=== PATIENT | female | born 1955 | race Caucasian/White ===

== ENCOUNTER 2024-09-04 02:03 | Outpatient (CLI) | payer MEDICARE, SELFPAY ==
[2024-09-04 15:11] LABS: HCT 37.9 % (36.0-46.0); HGB 12.5 g/dL (11.2-15.7); MCH 30.1 pg (27.0-33.0); MCV 91 fL (80-95); MPV 8.3 fL (8.0-11.0); Platelet Count 252 10^3/uL (130-400); RBC 4.15 10^6/uL (3.93-5.22); RDW-SD 43.1 fL
[2024-09-04 16:33] LABS: VALPROIC ACID 69.7 ug/mL
[2024-09-04 16:46] LABS: ALT 10 U/L (14-59); AST 10 U/L (15-37); Albumin 3.8 g/dL (3.4-5.0); Alkaline Phosphatase 60 U/L (46-116); Anion Gap 7.8 mmol/L (3-11); BUN 12 mg/dL (7-18); Bilirubin, Direct 0.1 mg/dL (0.0-0.2); Bilirubin, Total 0.44 mg/dL (0.2-1.0); CO2 29.2 mmol/L (21.0-32.0); CREATININE 0.6 mg/dL (0.55-1.02); Chloride 97 mmol/L (98-107); Glucose 100 mg/dL (74-106); Sodium 134 mmol/L (136-145); Total Protein 7.1 g/dL (6.4-8.2); Vitamin B12 1473 pg/mL (193-986); Vitamin D 25 Total 60.2 ng/mL (30-100)
[2024-09-08 13:34] LABS: Levetiracetam <1.0 mcg/mL
== END 2024-09-04 02:04 | disposition home or self-care (01) ==
PROVIDERS: PCP Nurse Practitioner Family; Referring Provider Nurse Practitioner Family; Visit Provider Nurse Practitioner Family
DX: Z79.899 Other long term (current) drug therapy (principal); R56.9 Unspecified convulsions
CPT/HCPCS: 36415; 80048; 80076; 82306; 85027; 80164; 80177; 82607

== ENCOUNTER 2024-10-15 14:16 | Outpatient (REF) | payer MEDICARE, SELFPAY ==
--- NOTE | 2024-10-15 11:00 | PAPFT_PTH ---
PATIENT: Yazmin Cline LOC: [facility] U#:[id number] AGE/SX: 68/F ROOM: RE10/15/[address]: Ese Aldana MD : [id number] BED: DIS: 10/15/2024 SPEC #: [id number] RECD: 10/15/24 17:39 STATUS: NISH REQ #: [id number] LEOPOLDO: 10/15/24 11:[address]: Ese Aldana DEPT: [facility] Cytology RECD BY: Sydney Torres ENTERED: 10/15/24 17:39 SP TYPE: PAPFT OTHR DR: Jada Thurman APRN Tissues: 1 - CX/ENDOCX FOR PAP SMEARS Procedures: PAP THIN PREP/[facility] Screening HPV DNA PROBE Comments: [id number] (HPV 16 & 18/45)
== END 2024-10-15 14:17 | disposition home or self-care (01) ==
LOC: LBN 14:16
PROVIDERS: PCP Nurse Practitioner Family; Visit Provider Obstetrics & Gynecology
DX: Z12.4 Encounter for screening for malignant neoplasm of cervix (principal); C50.911 Malignant neoplasm of unspecified site of right female breast; Z85.3 Personal history of malignant neoplasm of breast
CPT/HCPCS: 88142; 87624

== ENCOUNTER 2024-11-05 14:38 | Outpatient (CLI) | payer MEDICARE, SELFPAY ==
--- NOTE | 2024-11-05 08:00 | DI.RAD_ITS ---
Exam(s) XR FEMUR LT EXAM: XR FEMUR LT CLINICAL HISTORY: F/U LEFT FEMUR FRACTURE. TECHNIQUE: 2D digital imaging was performed. Three views. COMPARISON: 06 April 2024 outside films FINDINGS: BONES: Fixation plate is noted along the femoral shaft for fracture fixation. There has been signifi cant interval healing of the distal femoral fracture. There is bony bridging. No acute fracture is present. No bony destructive lesion is seen. JOINTS: No dislocation present. The hip joint space is maintained. The right knee prosthesis appear s unchanged. SOFT TISSUE: Normal. IMPRESSION: Significant interval healing of the previously noted distal femoral fracture with hardware in place. DATA REPOSITORY: RADIATION DOSE DELIVERED:
== END 2024-11-05 14:39 | disposition home or self-care (01) ==
LOC: DIORS 14:39
PROVIDERS: PCP Nurse Practitioner Family; Referring Provider Nurse Practitioner Family; Visit Provider Physician Assistant
DX: M76.32 Iliotibial band syndrome, left leg
CPT/HCPCS: 73552; 99203

== ENCOUNTER 2024-11-23 15:36 | Outpatient (CLI) | payer MEDICARE, SELFPAY ==
--- NOTE | 2024-11-23 15:27 | DI.RAD_ITS ---
Exam(s) XR CHEST 2V PA LATERAL EXAM: XR CHEST 2V PA LATERAL CLINICAL HISTORY: Acute bronchitis, J20.9, R/O pneumonia TECHNIQUE: 2D digital imaging was performed. Two views. COMPARISON: CR XR CHEST PORTABLE 1 VIEW from 03/11/2024 FINDINGS: HEART: Normal size. Aorta: Not dilated. PULMONARY VASCULATURE: Normal. MEDIASTINUM: Unremarkable. LUNGS: Clear. PLEURAL SPACE: No pleural effusion or pneumothorax. BONE:Unremarkable for age. SOFT TISSUES: Unremarkable. IMPRESSION: No acute abnormality. DATA REPOSITORY: RADIATION DOSE DELIVERED:
== END 2024-11-23 15:56 ==
LOC: DI 15:37
PROVIDERS: PCP Nurse Practitioner Family; Visit Provider Family Medicine
DX: J20.9 Acute bronchitis, unspecified (principal)
CPT/HCPCS: 71046

== ENCOUNTER 2024-12-15 00:34 | Outpatient (CLI) | payer MEDICARE, SELFPAY ==
--- NOTE | 2024-12-15 11:22 | DI.MAMMO_ITS ---
Exam(s) MG MAMMO SCREENING 60 MIN DUR EXAM: MG MAMMO SCREENING 60 MIN DUR CLINICAL HISTORY: breast cancer screening,personal h/o breast ca,z85.3,z12.31 TECHNIQUE: Mammograms were interpreted according to the usual protocol including computer analysis w [employer] CAD system, tomosynthesis and C-view imaging. COMPARISON: MG MA BREAST DIAGNOSTIC JESSI BILATERAL from 09/12/2022 MG MA BREAST SCREENING JESSI BILATERAL from 10/31/2023 FINDINGS: The breasts are composed of scattered fibroglandular densities, Breast Density category B. No suspicious masses or suspicious microcalcifications are seen. There is post therapeutic scarring and coarse calcification again noted in the right breast. No abnormal axillary lymph nodes are seen. There has been no significant change from prior exams. IMPRESSION: BI-RADS Category 2 - Negative Mammogram with benign findings. Yearly screening mammography is recommended. Breast Density - Category B, scattered fibroglandular densities. A negative radiographic report should not delay biopsy if a dominant or clinically suspicious mass is present. Up to ten percent of cancers are not identified on mammography. A negative report may reinforce clinical impression. Adenosis and dense breasts may obscure an underlying neoplasm. False positive reports average 6 to 10%. Patient will receive a letter notifying them of these results.
== END 2024-12-15 00:54 ==
LOC: DI 00:35
PROVIDERS: PCP Nurse Practitioner Family; Visit Provider Obstetrics & Gynecology
DX: Z12.31 Encounter for screening mammogram for malignant neoplasm of breast (principal); Z85.3 Personal history of malignant neoplasm of breast; R92.323 Mammographic fibroglandular density, bilateral breasts
CPT/HCPCS: 77063; 77067

== ENCOUNTER → 2025-01-28 08:25 | Outpatient (BNVA) | payer MEDICARE, SELFPAY | PROVIDERS: PCP Nurse Practitioner Family; Referring Provider Nurse Practitioner Family | DX: M76.32 Iliotibial band syndrome, left leg (principal) | CPT/HCPCS: 99213 ==

== ENCOUNTER → 2025-02-01 10:53 | Outpatient (BNVA) | payer MEDICARE, SELFPAY | PROVIDERS: PCP Nurse Practitioner Family; Referring Provider Nurse Practitioner Family; Visit Provider Student in an Organized Health Care Education/Training Program | DX: K44.9 Diaphragmatic hernia without obstruction or gangrene (principal) | CPT/HCPCS: 99214 ==

== ENCOUNTER 2025-02-03 14:26 | Outpatient (CLI) | payer MEDICARE, SELFPAY ==
--- NOTE | 2025-02-03 14:30 | DI.CT_ITS ---
Exam(s) CT NECK W EXAM: CT NECK W CLINICAL HISTORY: rule out abscess, osteomylitis, R68.84. TECHNIQUE: Imaging Protocol: Axial computed tomography images with coronal and sagittal reformatted images were created and reviewed CONTRAST MATERIAL: Intravenous: Omnipaque 350 Contrast volume:100 ml contrast COMPARISON: No exams were available for comparison FINDINGS: Parotids: Normal. Submandibular glands: Normal. Thyroid gland: Normal. Lymph nodes: There are scattered lymph nodes seen along the level one to level three all measuring le ss than 8 mm in short axis diameter which are physiologic in nature. Carotids arteries: No significant stenosis or dissection. Vertebral arteries: No significant stenosis or dissection. Soft tissues: The floor the mouth is unremarkable. The tonsils and adenoids are unremarkable. There is soft tissue thickening anterior to the right side of the mandible. No drainable collection. The epiglottis and vocal cords are within normal limits. Lungs: Images through both lung apices are unremarkable. Bones: Degenerative changes of the cervical spine. No evidence of osteomyelitis of the mandible. Th ere are few bilateral periapical lucencies around the mandibular teeth but no visible cortical destru ction. Visualized portions of the brain and orbits: Unremarkable. Sinuses and mastoids: Clear. IMPRESSION: Soft tissue swelling anterior to the mandible. No drainable abscess collection or evidence of osteom yelitis. RADIATION DOSE DELIVERED: 210.58mGy.cm Total DLP DATA REPOSITORY: All CT scans at this facility are submitted to the National Radiology Data Registry (NRDR) Dose Index Registry (DIR) with the [employer] (A[employer]). RADIATION OPTIMIZATION: All CT scans at this facility use at least one of these dose optimization te chniques: automated exposure control; mA and/or kV adjustment per patient size (includes targeted exa ms where dose is matched to clinical indication); or iterative reconstruction.
[2025-02-03 15:23] LABS: Abs Immature Grans 0.03 10^3/uL (0.0-0.06); Absolute Basophil Count 0.03 10^3/uL (0.0-0.2); Absolute Eosinophil Count 0.07 10^3/uL (0.0-0.7); Absolute Lymphocyte Count 1.44 10^3/uL (1.2-3.4); Absolute Monocyte Count 0.72 10^3/uL (0.1-0.8); Absolute Neutrophil Count 8.32 10^3/uL (1.2-6.7); Basophils % 0.3 %; Eosinophils % 0.7 %; HCT 38.7 % (36.0-46.0); Immature Grans % 0.3 %; Lymphocytes % 13.6 %; MCH 29.1 pg (27.0-33.0); MCHC 33.6 % (32.0-36.0); MCV 87 fL (80-95); MPV 9.5 fL (8.0-11.0); Monocytes % 6.8 %; Neutrophils % 78.3 %; Platelet Count 306 10^3/uL (130-400); RBC 4.47 10^6/uL (3.93-5.22); RDW 13.7 % (11.7-14.6); RDW-SD 43.3 fL; WBC 10.61 10^3/uL (4.4-10.8)
[2025-02-03 15:33] LABS: Anion Gap 12.5 mmol/L (3-11); BUN 15 mg/dL (7-18); CO2 25.5 mmol/L (21.0-32.0); CREATININE 0.6 mg/dL (0.55-1.02); Calcium 9.6 mg/dL (8.5-10.1); Chloride 94 mmol/L (98-107); Glucose 97 mg/dL (74-106); Potassium 4.1 mmol/L (3.5-5.1); Sodium 132 mmol/L (136-145)
[2025-02-03] MEDS: Normal Saline - Diluent 50 ML VIAL IJ (15:41)
[2025-02-03] MEDS: Omnipaque 350 MG/ML 100 ML BTL IJ (15:42)
== END 2025-02-03 14:46 ==
LOC: DI 14:27
PROVIDERS: PCP Nurse Practitioner Family; Visit Provider Nurse Practitioner Family
DX: R68.84 Jaw pain (principal)
CPT/HCPCS: 70491; 80048; 85025; J3490

== ENCOUNTER → 2025-03-09 14:31 | Outpatient (BNVA) | payer MEDICARE, SELFPAY | PROVIDERS: PCP Nurse Practitioner Family; Referring Provider Nurse Practitioner Family; Visit Provider Psychiatry & Neurology Neurology | DX: G35 Multiple sclerosis (principal); G40.109 Localization-related (focal) (partial) symptomatic epilepsy and epileptic syndromes with simple partial seizures, not intractable, without status epilepticus | CPT/HCPCS: 99215; G2212 ==

== ENCOUNTER → 2025-06-03 14:45 | Outpatient (BNVA) | payer MEDICARE, SELFPAY | PROVIDERS: PCP Nurse Practitioner Family; Referring Provider Nurse Practitioner Family; Visit Provider Psychiatry & Neurology Neurology | DX: G35 Multiple sclerosis (principal); G40.109 Localization-related (focal) (partial) symptomatic epilepsy and epileptic syndromes with simple partial seizures, not intractable, without status epilepticus; J45.909 Unspecified asthma, uncomplicated | CPT/HCPCS: 99215 ==

== ENCOUNTER 2025-07-02 04:36 | Outpatient (CLI) | payer MEDICARE, SELFPAY ==
--- NOTE | 2025-07-02 06:45 | DI.RAD_ITS ---
Exam(s) XR SHOULDER LT COMPLETE 2+V EXAM: XR SHOULDER LT COMPLETE 2+V CLINICAL HISTORY: PAIN LT SHOULDER, M25.512. TECHNIQUE: 2D digital imaging was performed. COMPARISON: CR XR SHOULDER RT COMPLETE 2+V from 07/02/2025 FINDINGS: Six views No evidence of fracture or dislocation nor abnormal soft tissue calcifications. There is moderate-advanced degenerative change in the glenohumeral joint, this most evident on the axial image. No prominent osteophytes on the femoral head. The subacromial space is not significantly diminished. There are only minimal degenerative changes in the AC joint. Bone density normal. No osseous lesions. IMPRESSION: There are moderate degenerative changes in the left shoulder glenohumeral joint. DATA REPOSITORY: RADIATION DOSE DELIVERED:
--- NOTE | 2025-07-02 06:45 | DI.RAD_ITS ---
Exam(s) XR SHOULDER RT COMPLETE 2+V EXAM: XR SHOULDER RT COMPLETE 2+V CLINICAL HISTORY: pain RT SHOULDER, M25.511. TECHNIQUE: 2D digital imaging was performed. COMPARISON: No exams were available for comparison FINDINGS: Five views No evidence of acute fracture nor dislocation of the glenohumeral joint. There are moderate degenerative changes in the glenohumeral joint evident. There are no soft tissue calcifications. Subacromial space is not diminished. Clavicle and AC joint appear unremarkable. Coracoid process is intact. Surgical clips are noted in the right axilla. Some degenerative cysts are noted in the lateral aspect of the humeral head. IMPRESSION: There are moderate degenerative changes in the glenohumeral joint. No fractures. No abnormal soft tissue calcifications. DATA REPOSITORY: RADIATION DOSE DELIVERED:
--- NOTE | 2025-07-02 09:15 | DI.RAD_ITS ---
Exam(s) XR LUMBAR SPINE COMPLETE EXAM: XR LUMBAR SPINE COMPLETE CLINICAL HISTORY: pain M54.50 LOW BACK PAIN G89.29 CHRONIC PAIN M54.16 RADICULOPATHY LUMBAR. TECHNIQUE: 2D digital imaging was performed. COMPARISON: CR XR LUMBAR SPINE 2-3 VIEWS from 11/26/2023 FINDINGS: Five views No evidence of acute fracture nor listhesis. There is scoliosis convex right which is essentially unchanged from 11/26/2023 outside images. There is advanced disc space narrowing again noted at each level in the lumbosacral spine with preferential more advanced narrowing on the left than the right side of full disc spaces accounting for the degenerative scoliosis being convex right. No osseous lesions. Sacroiliac joints appear unremarkable. There is facet arthropathy at multiple levels. IMPRESSION: Degenerative scoliosis and multilevel advanced degenerative disc disease. No significant radiographic change compared to outside images of October 2023 DATA REPOSITORY: RADIATION DOSE DELIVERED:
== END 2025-07-02 04:56 ==
LOC: DI 04:36
PROVIDERS: PCP Nurse Practitioner Family; Visit Provider Anesthesiology Pain Medicine
DX: M41.26 Other idiopathic scoliosis, lumbar region (principal); M51.361 Other intervertebral disc degeneration, lumbar region with lower extremity pain only; M19.111 Post-traumatic osteoarthritis, right shoulder; M19.112 Post-traumatic osteoarthritis, left shoulder
CPT/HCPCS: 72110; 73030

== ENCOUNTER 2025-07-19 02:29 | Outpatient (CLI) | payer MEDICARE, SELFPAY ==
--- NOTE | 2025-07-19 13:40 | DI.MRI_ITS ---
Exam(s) MR LUMBAR SPINE WO EXAM: MR LUMBAR SPINE WO CLINICAL HISTORY: low back pain, lumbar radiculitis, m54.16,m54.50. TECHNIQUE: Multiplanar multisequence MRI of the Lumbar spine was performed. COMPARISON: CR XR LUMBAR SPINE COMPLETE from 07/02/2025 FINDINGS: Bones: The last intervertebral disc space is designated the L5/S1 level for the numbering purpose of this examination. The vertebral body heights are well maintained. Alignment: Moderate dextroscoliosis secondary to asymmetric disc space narrowing. Cord: The conus tip ends at the T12 level. It is of normal size and signal intensity. T12-L1: Moderate loss of disc height. Minimal disc bulging. Osteophytes projecting eccentrically toward the left. Mild left neural foraminal narrowing. No central canal stenosis. L1-2: Severe narrowing of the left side of the intervertebral disc with osteophytes projecting toward the left. Moderate narrowing of the right half of the disc. Severe left neural foraminal narrowing. Mild central canal stenosis. L2-3: Moderate to severe loss of disc height. Mild concentric disc bulging and endplate osteophytes. Mild central canal stenosis. No significant neural foraminal narrowing. L3-4: Moderate to severe loss of disc height, greater on the left. Left-sided endplate osteophytes. Severe left neural foraminal narrowing. There also facet degenerative changes are greater on the left contributing to moderate central canal stenosis. L4-5: Severe loss of disc height. Small circumferential endplate osteophytes. Facet degenerative changes. Moderate central canal stenosis. Severe bilateral neural foraminal narrowing. L5-S1: Severe loss of disc height. Small endplate osteophytes. Severe right neural foraminal narrowing. No significant central canal stenosis. The visualized SI joints and sacrum are unremarkable. Soft tissues: The paraspinal soft tissues are unremarkable. IMPRESSION: Advanced degenerative disc changes throughout. Moderate dextro scoliosis. Multilevel neural foraminal narrowing. Central canal stenosis moderate at L3-4 and L4-5. No focal disc herniation. DATA REPOSITORY:
== END 2025-07-19 02:49 ==
LOC: DI 02:30
PROVIDERS: PCP Nurse Practitioner Family; Visit Provider Anesthesiology Pain Medicine
DX: M41.126 Adolescent idiopathic scoliosis, lumbar region (principal); M54.16 Radiculopathy, lumbar region; M48.062 Spinal stenosis, lumbar region with neurogenic claudication
CPT/HCPCS: 72148

== ENCOUNTER 2025-09-09 13:48 | Outpatient (CLI) | payer MEDICARE, SELFPAY ==
--- NOTE | 2025-09-09 06:00 | DI.RAD_ITS ---
Exam(s) XR PAIN CLINIC LUMBAR SP 2V EXAM: XR PAIN CLINIC LUMBAR SP 2V CLINICAL HISTORY: DX: Lumbar Radiculopathy. TECHNIQUE: Fluoroscopy was provided for the referring physician for guidance with performing pain clinic injection procedure. COMPARISON: No exams were available for comparison FINDINGS: Please see procedure note for details. Fluoro time: 16.9 seconds RADIATION DOSE DELIVERED: Ka,r=3.8 mGy
--- NOTE | 2025-09-09 14:03 | PDOC.PAIN_ITS ---
Date of service: 09/09/25 Time of Service: 14:45 Pain Managment Procedure Note Procedure Note Procedure Note: Lumbar Interlaminar Epidural Steroid Injection ? Location: L5-S1 ? Pre-procedure Diagnosis: M54.16- Radiculopathy, LUMBAR region ? Post-procedure Diagnosis:? The same as above ? Sedation:? ? None ? Medication: Depo-Medrol 80 mg, Omnipaque 1 mL ? Estimated blood loss:? less than 2 ml ? Surgeon:? Rio Chinchilla MD COMMENT: LBP to LEs MRI-L3-4: Moderate to severe loss of disc height, greater on the left. Left-sided endplate osteophytes. Severe left neural foraminal narrowing. There also facet degenerative changes are greater on the left contributing to moderate central canal stenosis. L4-5: Severe loss of disc height. Small circumferential endplate osteophytes. Facet degenerative ch anges. Moderate central canal stenosis. Severe bilateral neural foraminal narrowing. L5-S1: Severe loss of disc height. Small endplate osteophytes. Severe right neural foraminal narrowing. No significant central canal stenosis. ? Procedure Detail:? The procedure and potential risks were explained to the patient and informed written consent was obtained. The patient was escorted to the procedure room and placed in the prone position. Pillows were utilized for proper positioning and comfort. Time out was performed in the procedure room with nursing staff confirming the patient's identity, procedure to be performed, allergies, and any blood thinning or anti-platelet medications.? The patient's low back was prepped with ChloraPrep and draped in a sterile fashion. Sterile technique was maintained throughout the procedure.? Sterile gloves were used, a face mask was worn, and new single dose vials of all medications were used with the top being swabbed with alcohol and given time to dry prior to withdrawal of medication. Lidocane 1% was used to anesthetize the skin.Using a 25-gauge 1.5 inch needle, 1% lidocaine was instilled into the superficial soft tissue overlying the targeted area to provide local anesthesia. With fluoroscopic guidance, a 17 -gauge Tuohy needle was advanced toward the interlaminar space of L5-S1. The needle was then advance through the ligamentum flavum and into the posterior epidural space using the loss of resistance technique. Correct needle placement was confirmed through review of the AP and lateral fluoroscopic views. A 19-gauge arrow catheter was threaded cephalad and to the Right [Left] Following negative aspiration, 1 ml of Omnipaque 240 contrast was injected which confirmed good flow throughout the epidural space and no evidence of vascular flow or flow into adjacent compartments. Next, following negative aspiration, 1 ml of normal saline and 80mg of Depo-Medrol was injected. The needle was gently removed. The patient tolerated the procedure well and was transported to the recovery area for observation and discharge instructions. Permanent images saved and recorded. PAIN PRE-PROCEDURE 3/10 POST-PROCEDURE 0/10 Plan:? Follow up prn. COMMENT: I could not thread the catheter cephalad. Would consider transforaminal injection depending on how she does. Coding Conscious Sedation used for procedure: No CPT Codes: Inj Spine L/S w/Imaging - [id number] ([id number] ~G) Additional Codes: Date of Service () Diagnoses: M54.16- Radiculopathy, LUMBAR region
[2025-09-09 14:46] VITALS: PULSE 79; O2SAT 100
[2025-09-09] MEDS: Epidural Tray 1 EACH MC (14:47)
[2025-09-09] MEDS: methylPREDNISolone ACETATE 40 MG/ML VIAL IJ (14:47)
[2025-09-09] MEDS: Omnipaque 240 MG/ML 50 ML BTL IJ (14:47)
== END 2025-09-09 13:49 | disposition home or self-care (01) ==
LOC: PC 13:48
PROVIDERS: PCP Nurse Practitioner Family; Visit Provider Anesthesiology Pain Medicine
DX: M54.50 Low back pain, unspecified (principal); M54.16 Radiculopathy, lumbar region
CPT/HCPCS: 62323; 72100; J1010; Q9967